=== PATIENT | female | born 1975 | race Caucasian/White ===

== ENCOUNTER 2019-01-28 09:00 | Outpatient (CLI) | payer OTHER ==
[2014-06-09 07:55] VITALS: BMI 22.9
[~2019-01-28 09:00] MED LIST: TOPROL XL25 MG PO
== END 2019-01-28 10:00 | disposition home or self-care (01) ==
LOC: D.MAMMO 09:00
PROVIDERS: ATTEND Student in an Organized Health Care Education/Training Program
DX: Z12.31 Encounter for screening mammogram for malignant neoplasm of breast (principal)